=== PATIENT | female | born 1955 | race Hispanic/Latino ===

== ENCOUNTER 2017-10-18 14:35 | Emergency (ER) | payer SELFPAY ==
[2017-10-18 15:02] LABS: #Basophils 0.1 thou/uL (0.0-0.2); #Eosinphils 0.2 thou/uL (0.0-0.7); #Monocytes 0.6 thou/uL (0.11-0.59); #Neutrophils 4.9 thou/uL (1.40-6.50); %Basophils 0.9 % (0.0-1.0); %Eosinophils 2.5 % (0.0-10.0); %Lymphocytes 33.6 % (21.0-51.0); %Neutrophils 56.1 % (42.0-75.0); Hemoglobin 14.1 g/dL (12.0-16.0); Mean Corpuscular HGB CONC 35.6 g/dL (32.0-36.0); Mean Corpuscular Hemoglobin 34.3 pg (27.0-31.0); Mean Corpuscular Volume 96.3 fl (81.0-99.0); Mean Platelet Volume 8.4 fL (7.4-10.4); Platelet Count 311 thou/uL (130-400); RBC Distribution Width 10.7 % (11.5-14.5); Red Blood Cell (RBC) Count 4.11 mill/uL (4.20-5.40); White Blood Cell (WBC) Count 8.8 thou/uL (4.8-10.8)
[2017-10-18 15:23] LABS: ALT (SGPT) 15 U/L (8-55); AST (SGOT) 13 U/L (5-34); Albumin 4.5 g/dL (3.5-5.0); Alkaline Phosphatase 121 U/L (40-150); Anion Gap 16 mmol/L (10-20); BUN (Urea Nitrogen) 17 mg/dL (9.8-20.1); Bilirubin, Total 0.4 mg/dL (0.2-1.2); Calc. Creatinine Clearance 0 mL/min (70-130); Calcium 10.5 mg/dL (7.8-10.44); Carbon Dioxide 25 mmol/L (22-29); Chloride 91 mmol/L (98-107); Estimated GFR-MDRD 54; Globulin 3.7 g/dL (2.4-3.5); Glucose 535 mg/dL (70-105); Protein, Total 8.2 g/dL (6.0-8.3); Sodium 128 mmol/L (136-145)
[2017-10-18 16:18] LABS: Bilirubin Negative (Negative); Blood, Urine Negative (Negative); Clarity CLEAR (Clear); Glucose, Urine (Dipstick) >=1000 mg/dL (Negative); Leukocyte Negative (Negative); Nitrite Negative (Negative); Protein, Urine (Dipstick) Negative (Neg-Trace); Specific Gravity, Urine 1.015 (1.002-1.036); Urobilinogen 0.2 mg/dL (0.2-1.0); pH, Urine 5.5 (5.0-9.0)
[2017-10-18 16:32] LABS: Magnesium 1.6 mg/dL (1.6-2.6); Phosphorus 5.1 mg/dL (2.3-4.7)
[2017-10-18 16:47] LABS: Base Excess-Venous 2.6 mmol/L (0 (+/- 2.5)); CO2 Tension (PvCO2) 50.6 mmHg (41.0-51.0); Hemoglobin - Calc 14.8 g/dL (12.0-18.0); O2 Tension (PvO2) 32.1 mmHg (35.0-45.0); Potassium 3.8 mmol/L (3.4-4.7); T. Carbon Dioxide 30.6 mmol/L (1.0-85.0); pH (Venous) 7.367 (7.35-7.45); vO2 Saturation-calc 58.6 % (94-98)
--- NOTE | 2017-10-18 17:15 | RAD ---
PORTABLE AP CHEST: Date: 10/18/17 HISTORY: Vomiting, hyperglycemia. HISTORY: 08/13/15. FINDINGS: Cardiac silhouette and pulmonary vasculature are within normal limits. Lungs are clear. There is a ca lcification overlying the right lung base. Mild right convex curvature of the thoracic spine is prese nt. Vascular calcifications seen thoracic aorta. There has been no interval change from prior exam. IMPRESSION: No acute cardiopulmonary process. POS: [facility]
== END 2017-10-18 19:13 | disposition home or self-care (01) ==
LOC: ERS 14:35
DX: E11.65 Type 2 diabetes mellitus with hyperglycemia (principal); E78.5 Hyperlipidemia, unspecified; F32.9 Major depressive disorder, single episode, unspecified; F17.210 Nicotine dependence, cigarettes, uncomplicated; Z79.4 Long term (current) use of insulin; Z79.899 Other long term (current) drug therapy
CPT/HCPCS: 36415; 36416; 71045; 80053; 81003; 82010; 82330; 82803; 83690; 83735; 84100; 85025; 93005; 96360; 96361